=== PATIENT | male | born 1950 | race Caucasian/White ===

== ENCOUNTER 2016-11-26 05:27 | Inpatient (IN) | payer OTHER ==
[2016-11-11 12:48] VITALS: BMI 25.0
--- NOTE | 2016-11-11 13:14 | PAT Medication Instructions ---
Service Date November 11, 2016. Current Home Medication List Aspirin (Aspirin Ec), 81 MG PO NOON Kcjdcmx-Tfdixvxklzzlt-Nndhimzy (Excedrin Extra Strength), 1-2 TAB PO PRN Calcium Carbonate (Tums), 2 TAB PO PRN Carisoprodol (Soma), 350 MG PO PRN Coenzyme Q10 (Ubidecarenone) (Coq10), 100 MG PO QPM Diclofenac (Voltaren), 50 MG PO BID PRN for RN Diphenhydramine Hcl (Benadryl Allergy), 50 MG PO HS PRN for RN Pravastatin (Pravachol ), 40 MG PO HS Tramadol (Ultram), 50 MG PO Q6H PRN for RN [Prevacid], 1 TAB PO PRN Medication Instructions For Your Scheduled Surgery Aspirin (Aspirin Ec), 81 MG PO NOON (patient will check with surgeon for instructions) Ziwrppj-Eynalkxtzpbbz-Icfguogk (Excedrin Extra Strength), 1-2 TAB PO PRN ( patient will check with surgeon for instructions) Diclofenac (Voltaren), 50 MG PO BID PRN for RN (patient will check with surgeon for instructions) - Hold the following medications 2 weeks prior to surgery: Coenzyme Q10 (Ubidecarenone) (Coq10), 100 MG PO QPM - Hold the following medications the morning of surgery: Carisoprodol (Soma), 350 MG PO PRN Calcium Carbonate (Tums), 2 TAB PO PRN - Take the following medications the morning of surgery with a sip of water: Prevacid 1 TAB PO PRN Tramadol (Ultram), 50 MG PO Q6H PRN for RN (can take up to four hours prior to surgery if needed) - Take the following medications as scheduled the night before surgery: Tramadol (Ultram), 50 MG PO Q6H PRN for RN Pravastatin (Pravachol ), 40 MG PO HS Diphenhydramine Hcl (Benadryl Allergy), 50 MG PO HS PRN for RN Carisoprodol (Soma), 350 MG PO PRN If you have any questions please call us at [phone] or [phone] ( Emily) or [phone]
[2016-11-11 14:01] LABS: BASO % 0.4 %; BASO ABS # 0.02 K/uL (0-0.2); COMPLETE YES; EOS % 2.1 %; HEMATOCRIT 44.4 % (42-52); IG% 0.2 %; LYMPH % 30.9 %; LYMPH ABS # 1.64 K/uL (1.2-3.4); MEAN CELL VOLUME 88.1 fL (80-100); MEAN CORPUSCULAR HEMOGLOBIN 30.2 pg (25-34); MEAN CORPUSCULAR HGB CONC 34.2 g/dl (32-36); MEAN PLATELET VOLUME 10.1 fL (7.4-10.4); MONO % 4.5 %; NEUT % 61.9 %; PLATELET COUNT 183 K/uL (130-400); RED BLOOD COUNT 5.04 M/uL (4.7-6.1); WHITE BLOOD COUNT 5.31 K/uL (4.8-10.8)
[2016-11-11 14:09] LABS: URINE APPEARANCE CLEAR (CLEAR); URINE BILIRUBIN NEG (NEG); URINE COLOR YELLOW; URINE NITRITE NEG (NEG); URINE SPECIFIC GRAVITY 1.015 (1.000-1.030); UROBILINOGEN NEG (NEG)
--- NOTE | 2016-11-11 14:09 | DIAGNOSTIC IMAGING REPORT ---
CHEST 2 VIEWS ROUTINE CLINICAL HISTORY: pat preoperative evaluation COMPARISON STUDY: No previous studies for comparison. FINDINGS: Mild emphysematous change. Glottic atelectasis left base. No focal infiltrate. IMPRESSION: Mild emphysematous change. No acute process. Electronically signed by: Bk Gutierres M.D. 11/11/2016 2:08 PM Dictated Date/Time: 11/11/2016 2:08 PM
[2016-11-11 14:15] LABS: MANUAL MICROSCOPIC REQUIRED? NO; REVIEW REQ? NO
[2016-11-11 15:19] LABS: BUN/CREATININE RATIO 14.9 (10-20); CALCIUM 9.3 mg/dl (8.5-10.1); CREATININE 0.9 mg/dl (0.60-1.40); POTASSIUM 4.3 mmol/L (3.5-5.1)
[2016-11-26] VITALS (8 sets, daily range): BP systolic 121–137; BP diastolic 64–83; PULSE 59–85; TEMP 36.3–36.6; O2SAT 94–98; Ht 170.2 cm; Wt 74.8 kg
[~2016-11-26] VITALS: Ht 170.2 cm; Wt 74.8 kg
[~2016-11-26 05:27] MED LIST: ASPI-391 PO; ASPI81TA28 PO; CALC500C3 PO; CARI350T28 PO; COEN100C7 PO; DICL50TA3 PO; DIPH1TAB87 PO; PRAV20TA PO; PREVACID PO; TRAM-10 PO
[2016-11-26] MEDS ORDERED: HEPARIN SOD 5000 UNIT/0.5 ML CARP SQ SCH (06:00)
[2016-11-26] MEDS ORDERED: CEFAZOLIN 1000MG/55 ML D5W IV SCH (06:00)
[2016-11-26] MEDS ORDERED: LACTATED RINGER'S 1000ML 1,000 ML IV SCH (06:00)
[2016-11-26] MEDS ORDERED: BUPIVACAINE 0.5 % 5 MG/1 ML MPF 30ML VIAL ONE (06:51)
[2016-11-26] MEDS ORDERED: ONDANSETRON INJ 2 MG/ML 2 ML VIAL ONE (07:00)
[2016-11-26] MEDS ORDERED: ROCURONIUM BROMIDE 10 MG/ML 5 ML VIAL ONE ×2 (07:00→08:07)
[2016-11-26] MEDS ORDERED: DEXAMETHASONE SOD INJ 4 MG/ML VIAL ONE (07:00)
[2016-11-26] MEDS ORDERED: PROPOFOL IV EMULSION 10 MG/ML 20 ML VIAL IV ONE (07:00)
[2016-11-26] MEDS ORDERED: MIDAZOLAM HCL 1 MG/ML 2ML VIAL ONE (07:00)
[2016-11-26] MEDS ORDERED: LIDOCAINE HCL 2% 2 ML VIAL (20MG/ML) ONE (07:00)
[2016-11-26] MEDS ORDERED: NEOSTIGMINE METHYLSULFATE 5 MG/5 ML SYR ONE (07:00)
[2016-11-26] MEDS ORDERED: GLYCOPYRROLATE INJ 0.2 MG/ML VIAL ONE (07:00)
[2016-11-26] MEDS ORDERED: FENTANYL CITRATE INJ 50 MCG/1 ML 2 ML VIAL ONE (07:00)
--- NOTE | 2016-11-26 07:08 | History & Physical Bridge Note ---
H&P Re-Evaluation Bridge Note: I have examined the patient, reviewed the History & Physical and in the interval since the performance of the History & Physical I have noted the following changes of clinical significance: No changes noted
[2016-11-26] MEDS ORDERED: CEFAZOLIN SOD 1 GM VIAL ONE (08:04)
[2016-11-26] MEDS ORDERED: HYDROmorphone INJ 2 MG/ML SYR/VIAL ONE (08:13)
[2016-11-26] MEDS ORDERED: LABETALOL HCL IV 5 MG/ML 20ML IV PRN (08:30)
[2016-11-26] MEDS ORDERED: KETOROLAC TROMETHAMINE 30 MG/ML VIAL IV. PRN (08:30)
[2016-11-26] MEDS ORDERED: ONDANSETRON INJ 2 MG/ML 2 ML VIAL IV PRN ×2 (08:30→11:45)
[2016-11-26] MEDS ORDERED: ATROPINE SULFATE 0.1 MG/ML 5ML SYR IV PRN (08:30)
[2016-11-26] MEDS ORDERED: PROMETHAZINE HCL INJ 6.25 MG in SODIUM CHLORIDE 0.9% 50ML 50 ML IV PRN (08:30)
[2016-11-26] MEDS ORDERED: FLOSEAL HEMOSTATIC MATRIX 10ML TOP ONE (11:09)
[2016-11-26] MEDS ORDERED: SURGICEL ABSORB HEMOSTAT 2IN X 14IN TOP ONE (11:09)
--- NOTE | 2016-11-26 11:31 | [facility] Post Operative Brief Note ---
Immediate Operative Summary Operative Date Nov 26, 2016. Pre-Operative Diagnosis cT1c [place] 3+4 prostate cancer. Post-Operative Diagnosis Same as preop. Procedure(s) Performed Robotic assisted Laparoscopic Radical Retropubic Prostatectomy, extensive laparoscopic lysis of adhesions, bilateral obturator lymph node dissection Surgeon Dr. Gordon Collins Health Safety And Environment Manager Surgeon(s) ANKIT Medley Estimated Blood Loss 100 ml Findings Extensive intraabdominal adhesions requiring >1 hour to lyse and clear field, scarred bladder neck, UOs noted to be relatively close to bladder neck but effluxing clear urine after completion of case, watertight anastomosis. Fluids (cc crystalloids) 1450 cc crystalloid Specimens A: Anabella prostatic fat B: Prostate and seminal vesicles C: Obturator lymph node, right (has clip) *Fresh* D Obturator lymph node, left *Fresh* Drains 16 fr silicone marie with 8 cc H2O, #10 FREDERICK LLQ Anesthesia GAET + local Complication(s) None Disposition Recovery Room / PACU
[2016-11-26] MEDS ORDERED: KETOROLAC TROMETHAMINE 15 MG/ML VIAL IV PRN (11:45)
[2016-11-26] MEDS ORDERED: CALCIUM CARBONATE 500 MG CHEWABLE PO PRN (11:45)
[2016-11-26] MEDS ORDERED: OXYBUTYNIN CHLORIDE 5 MG TAB PO PRN (11:45)
[2016-11-26] MEDS ORDERED: HYDROmorphone INJ 1 MG/ML SYR IV PRN (11:45)
[2016-11-26] MEDS ORDERED: HYDROmorphone INJ 1 MG/ML SYR ONE ×2 (11:52→12:20)
[2016-11-26 11:57] LABS: HEMATOCRIT 40.4 % (42-52); MEAN CELL VOLUME 87.4 fL (80-100); MEAN CORPUSCULAR HEMOGLOBIN 29.9 pg (25-34); MEAN PLATELET VOLUME 9.7 fL (7.4-10.4); PLATELET COUNT 167 K/uL (130-400); RED BLOOD COUNT 4.62 M/uL (4.7-6.1); WHITE BLOOD COUNT 11.01 K/uL (4.8-10.8)
[2016-11-26 12:02] LABS: MEAN CORPUSCULAR HGB CONC 34.2 g/dl (32-36)
[2016-11-26] MEDS: HYDROmorphone INJ 2 MG/ML SYR/VIAL IV PRN ×4 (12:18→12:33)
[2016-11-26 12:33] LABS: BUN/CREATININE RATIO 19.4 (10-20); CALCIUM 7.9 mg/dl (8.5-10.1); CREATININE 0.87 mg/dl (0.60-1.40); POTASSIUM 4.2 mmol/L (3.5-5.1)
--- NOTE | 2016-11-26 12:47 | Anesthesiology Progress Note ---
Anesthesia Post Op Note Date & Time Nov 26, 2016 at 12:48 Vital Signs Pain Intensity: 4 Vital Signs Past 12 Hours Date Time Temp Pulse Resp B/P (MAP) Pulse Ox O2 Delivery O2 Flow Rate FiO2 11/26/16 12:40 36.6 77 16 145/76 95 Nasal Cannula 2 11/26/16 12:30 76 16 152/90 95 Nasal Cannula 2 11/26/16 12:20 72 16 146/84 97 Nasal Cannula 2 11/26/16 12:10 69 16 130/78 97 Nasal Cannula 2 11/26/16 12:00 63 16 150/81 98 Nasal Cannula 2 11/26/16 11:50 68 16 138/67 100 Mask 10 11/26/16 11:40 36.2 67 16 138/65 100 Mask 10 11/26/16 11:31 36.2 70 16 139/80 100 Mask 10 11/26/16 05:50 36.6 66 20 131/82 96 Room Air Notes Mental Status: alert / awake / arousable, participated in evaluation Pt Amnestic to Procedure: Yes Nausea / Vomiting: adequately controlled Pain: adequately controlled Airway Patency, RR, SpO2: stable & adequate BP & HR: stable & adequate Hydration State: stable & adequate Anesthetic Complications: no major complications apparent
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
[2016-11-26 14:29] LABS: PARTIAL THROMBOPLASTIN RATIO 0.9; PROTHROMBIN TIME (PATIENT) 10.9 SECONDS (9.0-12.0)
[2016-11-26] MEDS: LACTATED RINGER'S 1000ML 1,000 ML IV SCH ×2 (14:43→23:10)
[2016-11-26] MEDS: CEFAZOLIN IV 2,000 MG in DEXTROSE 5% 50ML 50 ML IV SCH ×2 (20:44→23:11)
[2016-11-26] MEDS: ACETAMINOPHEN 500 MG TAB PO SCH ×2 (20:48→20:50)
[2016-11-26] MEDS: HEPARIN SOD 5000 UNIT/0.5 ML CARP SQ SCH (20:48)
[2016-11-26] MEDS: DOCUSATE SODIUM 100 MG CAP PO SCH (20:48)
[2016-11-26] MEDS ORDERED: PRAVASTATIN SOD 20 MG TAB PO SCH (21:00)
[2016-11-26] MEDS: OXYCODONE/ACETAMINOPHEN 7.5-325 TAB PO PRN (23:18)
[2016-11-27 03:20] VITALS: BP 111/67; PULSE 70; TEMP 36.7; O2SAT 93
[2016-11-27] MEDS: OXYCODONE/ACETAMINOPHEN 7.5-325 TAB PO PRN (03:28)
[2016-11-27] MEDS: ACETAMINOPHEN 500 MG TAB PO SCH ×2 (03:29→10:10)
[2016-11-27 06:53] VITALS: BP 112/65; PULSE 56; TEMP 36.5; O2SAT 94
[2016-11-27 06:56] LABS: BASO % 0.1 %; BASO ABS # 0.01 K/uL (0-0.2); COMPLETE YES; EOS % 0.1 %; IG% 0.2 %; LYMPH % 16.3 %; LYMPH ABS # 1.56 K/uL (1.2-3.4); MEAN CELL VOLUME 87.7 fL (80-100); MEAN CORPUSCULAR HEMOGLOBIN 29.3 pg (25-34); MEAN CORPUSCULAR HGB CONC 33.4 g/dl (32-36); MEAN PLATELET VOLUME 9.6 fL (7.4-10.4); MONO % 9.4 %; NEUT % 73.9 %; PLATELET COUNT 160 K/uL (130-400); RED BLOOD COUNT 3.99 M/uL (4.7-6.1); WHITE BLOOD COUNT 9.59 K/uL (4.8-10.8)
[2016-11-27 07:37] LABS: BUN/CREATININE RATIO 14.8 (10-20); CALCIUM 7.7 mg/dl (8.5-10.1); CREATININE 0.74 mg/dl (0.60-1.40); POTASSIUM 4.1 mmol/L (3.5-5.1)
[2016-11-27] MEDS: CEFAZOLIN IV 2,000 MG in DEXTROSE 5% 50ML 50 ML IV SCH (08:07)
[2016-11-27] MEDS: LACTATED RINGER'S 1000ML 1,000 ML IV SCH (08:07)
[2016-11-27] MEDS: DOCUSATE SODIUM 100 MG CAP PO SCH (08:11)
[2016-11-27] MEDS: HEPARIN SOD 5000 UNIT/0.5 ML CARP SQ SCH (08:16)
[2016-11-27] MEDS ORDERED: CLC100 PO (08:48)
[2016-11-27] MEDS ORDERED: DTR5 PO (08:48)
[2016-11-27] MEDS ORDERED: CIPR-255 PO (08:48)
[2016-11-27] MEDS ORDERED: OXYC7.5T62 PO (08:48)
[2016-11-27] MEDS ORDERED: ASPIRIN 81 MG ECTAB PO SCH (09:00)
[2016-11-27] MEDS ORDERED: PANTOprazole SOD 40 MG TAB PO PRN (09:00)
--- NOTE | 2016-11-27 09:00 | Discharge Instructions ---
Discharge Instructions Date of Service Nov 27, 2016. Admission Reason for Admission: Prostate Cancer Discharge Discharge Diagnosis / Problem: Prostate Cancer Discharge Goals Goal(s): Improve function, Prevent Disease Progression Activity Recommendations Activity Limitations: per Instructions/Follow-up section . Instructions / Follow-Up Instructions / Follow-Up 1. Do not lift >15lbs x 6 weeks. 2. No heavy exercise x 6 weeks. You may engage in light activity such as walking and stairs as tolerated. 3. No sexual intercourse until cleared by Dr. Collins or Dr. Garcias. 4. Do [address] drive x [address] while taking narcotics. 5. Finish all of the antibiotic you have been prescribed. 6. Immediately call our office at [phone] if your catheter is removed for any reason. 7. Follow-up as scheduled. Please call our office at [phone] if you need to reschedule for any reason. . Current Hospital Diet Hospital Diet(s): Clear Liquid Diet Discharge Diet Recommended Diet: Regular Diet Procedures Procedures Performed: Robotic assisted Laparoscopic Radical Retropubic Prostatectomy, extensive laparoscopic lysis of adhesions, bilateral obturator lymph node dissection Pending Studies Studies pending at discharge: no Medical Emergencies . Who to Call and When: Medical Emergencies: If at any time you feel your situation is an emergency, please call 911 immediately. . Non-Emergent Contact Non-Emergency issues call your: Primary Care Provider, Urologist Call Non-Emergent contact if: temperature is above 101.5 . . "Provider Documentation" section prepared by Viji Holt. . VTE Core Measure Inpt VTE Proph given/why not?: Unfractionated heparin SQ, SCD's [place] Drug Monitoring Program Search Results: no issues identified
--- NOTE | 2016-11-27 10:28 | Progress Note ---
Subjective Date of Service: Nov 27, 2016. Subjective Pt evaluation today including: conversation w/ patient, physical exam, chart review Voiding: marie catheter in place 66 year old male POD #1 RALP Doing well post op. Tolerating diet and ambulating in the hallway. Labs stable. Marie intact draining clear yellow urine. Abdominal incisions look good. FREDERICK only draining minimal amounts. Review of Systems Constitutional: No fever, No chills Eyes: No worsening of vision ENT: No hearing loss Respiratory: No cough, No shortness of breath Cardiac: No chest pain Abdomen: No pain, No nausea Male : + see HPI Neurologic: No memory loss Psychiatric: No depression symptoms Heme: No abnormal bleeding/bruising Endo: No fatigue Objective Vital Signs Date Time Temp Pulse Resp B/P (MAP) Pulse Ox O2 Delivery O2 Flow Rate FiO2 11/27/16 06:53 36.5 56 16 112/65 (81) 94 Room Air 11/27/16 03:20 36.7 70 15 111/67 (82) 93 Room Air 11/26/16 23:30 Room Air 11/26/16 22:58 36.5 59 14 122/64 (83) 94 Room Air 11/26/16 20:00 36.3 78 16 126/78 (94) 96 Room Air 11/26/16 17:00 Room Air 11/26/16 16:43 36.5 85 16 124/72 (89) 97 Nasal Cannula 2.0 11/26/16 16:08 36.4 66 16 121/68 (85) 96 Nasal Cannula 2.0 11/26/16 15:02 36.4 67 16 137/83 (101) 96 Nasal Cannula 2.0 11/26/16 14:20 75 16 133/75 (94) 94 11/26/16 13:45 98 Room Air 2.0 11/26/16 12:50 36.6 75 16 164/96 98 Nasal Cannula 2 11/26/16 12:40 36.6 77 16 145/76 95 Nasal Cannula 2 11/26/16 12:30 76 16 152/90 95 Nasal Cannula 2 11/26/16 12:20 72 16 146/84 97 Nasal Cannula 2 11/26/16 12:10 69 16 130/78 97 Nasal Cannula 2 11/26/16 12:00 63 16 150/81 98 Nasal Cannula 2 11/26/16 11:50 68 16 138/67 100 Mask 10 11/26/16 11:40 36.2 67 16 138/65 100 Mask 10 11/26/16 11:31 36.2 70 16 139/80 100 Mask 10 Physical Exam General Appearance: WD/WN, no apparent distress Eyes: normal inspection ENT: hearing grossly normal Neck: no JVD Respiratory/Chest: no respiratory distress, no accessory muscle use Cardiovascular: no JVD Abdomen: soft Extremities: normal inspection, no pedal edema, no calf tenderness Neurologic/Psychiatric: alert, normal mood/affect, oriented x 3 Laboratory Results Last 24 Hours Test 11/26/16 11:50 11/26/16 14:05 11/27/16 06:32 White Blood Count 11.01 K/uL 9.59 K/uL Red Blood Count 4.62 M/uL 3.99 M/uL Hemoglobin 13.8 g/dL 11.7 g/dL Hematocrit 40.4 % 35.0 % Mean Corpuscular Volume 87.4 fL 87.7 fL Mean Corpuscular Hemoglobin 29.9 pg 29.3 pg Mean Corpuscular Hemoglobin Concent 34.2 g/dl 33.4 g/dl RDW Standard Deviation 41.4 fL 41.6 fL RDW Coefficient of Variation 12.9 % 12.9 % Platelet Count 167 K/uL 160 K/uL Mean Platelet Volume 9.7 fL 9.6 fL Sodium Level 143 mmol/L 144 mmol/L Potassium Level 4.2 mmol/L 4.1 mmol/L Chloride Level 108 mmol/L 109 mmol/L Carbon Dioxide Level 26 mmol/L 28 mmol/L Anion Gap 9.0 mmol/L 7.0 mmol/L Blood Urea Nitrogen 17 mg/dl 11 mg/dl Creatinine 0.87 mg/dl 0.74 mg/dl Est Creatinine Clear Calc Drug Dose 78.1 ml/min 91.8 ml/min Estimated GFR () 104.2 111.4 Estimated GFR (Non- 89.9 96.1 BUN/Creatinine Ratio 19.4 14.8 Random Glucose 145 mg/dl 92 mg/dl Calcium Level 7.9 mg/dl 7.7 mg/dl Prothrombin Time 10.9 SECONDS Prothromb Time International Ratio 1.0 Activated Partial Thromboplast Time 24.6 SECONDS Partial Thromboplastin Ratio 0.9 Neutrophils (%) (Auto) 73.9 % Lymphocytes (%) (Auto) 16.3 % Monocytes (%) (Auto) 9.4 % Eosinophils (%) (Auto) 0.1 % Basophils (%) (Auto) 0.1 % Neutrophils # (Auto) 7.09 K/uL Lymphocytes # (Auto) 1.56 K/uL Monocytes # (Auto) 0.90 K/uL Eosinophils # (Auto) 0.01 K/uL Basophils # (Auto) 0.01 K/uL Immature Granulocyte % (Auto) 0.2 % Immature Granulocyte # (Auto) 0.02 K/uL Assessment and Plan s/p RALP Doing well post op, Will advance diet. Encourage ambulation. Plan to d/c after lunch if tolerating po well and pain is controlled. Marie cath care teaching. FREDERICK d/c prior discharge. Scripts on chart.
[2016-11-27 13:55] VITALS: BP 112/65; PULSE 56; TEMP 36.5; O2SAT 94
--- NOTE | 2016-12-09 14:00 | DISCHARGE SUMMARY ---
ADMITTING DIAGNOSIS: [place] 3+4 prostate cancer. DISCHARGE DIAGNOSIS: Same, copious intraabdominal adhesions. PROCEDURES OVER THE COURSE OF ADMISSION: Include a laparoscopic lysis of adhesions, robotic prostatectomy and pelvic lymph node dissection on 11/26/2016. COMPLICATIONS: None. ADMITTING ATTENDING: Dr. Gordon Collins. BRIEF HISTORY: Mr. Anderson is a pleasant 66-year-old male who has been diagnosed with [place] 3+4 adenocarcinoma of the prostate who has chosen a robotic prostatectomy to manage his disease. He is being admitted for this purpose. Please see H&P for further details. PROCEDURE: The patient was properly identified and brought to the operative suite. The patient was admitted to the hospital after a robotic prostatectomy on 11/26/2016 as planned. A significant intraoperative lysis of adhesions was required. Please see operative report for further details. Postoperatively the patient was admitted to the floor and diet and activity were rapidly advanced. By postoperative day #1, the patient was ambulating in the hallway, tolerating a regular diet and comfortable on oral pain medication. A Gordon catheter was then placed, well tolerated as well as a FREDERICK drain. FREDERICK was able to be removed and the patient was considered stable for discharge home. FOLLOW-UP CARE: The patient to be discharged home on 11/26/2016. Please see hospital notes for further details. Postoperative appointment for trial of void and postop path discussion are confirmed. The patient is instructed to contact our service should he note any fevers, chills, nausea, vomiting or other significant difficulties in the postoperative period. Prescription for antibiotics, analgesics and stool softeners provided. Please see discharge instruction paperwork for further details.
== END 2016-11-27 15:45 | disposition home or self-care (01) | DRG 708 ==
LOC: C.ACU 05:27 → C.MSN 07:00 → ENRESERV 12:14
PROVIDERS: ADMIT Urology; ATTEND Urology
PROC: 0DNE4ZZ Release Large Intestine, Percutaneous Endoscopic Approach (ICD-10-PCS; principal; 2016-11-26 07:30)
PROC: 0VT04ZZ Resection of Prostate, Percutaneous Endoscopic Approach (ICD-10-PCS; principal; 2016-11-26 07:30)
DX: C61 Malignant neoplasm of prostate (principal); K66.0 Peritoneal adhesions (postprocedural) (postinfection); N40.0 Benign prostatic hyperplasia without lower urinary tract symptoms; J44.9 Chronic obstructive pulmonary disease, unspecified; M19.90 Unspecified osteoarthritis, unspecified site

== ENCOUNTER → 2016-12-14 | Outpatient (CLI) | payer OTHER ==
[~2016-12-14] MED LIST changes: +CIPR-255 PO; +CLC100 PO; +DTR5 PO; +OXYC7.5T62 PO
[2016-12-14 18:40] LABS: BLOOD UREA NITROGEN 19 mg/dl (7-18); BUN/CREATININE RATIO 20.3 (10-20); CREATININE 0.93 mg/dl (0.60-1.40)
== END | disposition home or self-care (01) ==
LOC: C.LABMFLN 16:11
PROVIDERS: ATTEND Urology
DX: R32 Unspecified urinary incontinence (principal)